=== PATIENT | female | born 1990 | race Caucasian/White ===

== ENCOUNTER 2022-09-09 07:47 | Day surgery (SDC) | payer BC, SELFPAY ==
[2022-09-09] VITALS (12 sets, daily range): BP systolic 90–118; BP diastolic 52–74; PULSE 71–91; RESP 14–18; TEMP 36.4–36.7; O2SAT 94–99
[2022-09-09] MEDS: LACTATED RINGERS 1000 ML 1,000 ML 100 ML IV (08:35)
[2022-09-09] MEDS: SODIUM CHLORIDE 0.9 % (FLUSH) 10 ML SYRINGE IVF (08:35)
[2022-09-09 09:26] LABS: HCG Qualitative Serum* Negative (Negative)
--- NOTE | 2022-09-09 10:52 | P.GYNPRC_ITS ---
Procedure Note Date Seen: 09/09/22 Procedure Details: PREOPERATIVE DIAGNOSIS: Chronic left Bartholin's duct cyst, previously incised and drained and marsupialized. POSTOPERATIVE DIAGNOSIS: Chronic left Bartholin's duct cyst, previously incised and drained and marsupialized. PROCEDURE: Excision of left Bartholin's duct cyst. SURGEON: Belinda. ANESTHESIA: Monitored anesthesia care converted to general endotracheal with LMA. COMPLICATIONS: None ESTIMATED BLOOD LOSS: 75 mL. FINDINGS: Enlarged left Bartholin's cyst, approximately 4 cm diameter, draining to the skin of the posterior inferior left vulva when pressure applied, yellow- green malodorous opaque discharge. PROCEDURE NOTE: Because the cyst could be seen to drain from to subcutaneous tracks to the exterior vulvar skin, the decision was made not to proceed merely with marsupialization, as this would result in 3 drainage tracts. The decision was made to proceed with excision of the cyst. A wheal was made using 1% lidocaine with epi subcutaneously over the surface of the cyst just within the introitus in the vaginal mucosa. A 10 mm incision was then made with the scalpel into the vaginal mucosa over the cyst. The skin edges were grasped with Allis clamps. The underlying Bartholin's duct cyst was grasped with Yuki clamps. A combination of blunt and sharp dissection with Metzenbaum scissors was used to carefully dissect the cyst wall from the vulvar tissues. The patient had some apparent discomfort during the dissection, so additional lidocaine with epinephrine was injected into the tissues surrounding the cyst. Anesthesia was then converted from monitored anesthesia care to general endotracheal anesthesia using an LMA. In the process of dissection, the cyst was ruptured, and drained additional yellow-green fluid. The skin edges were also somewhat fragile, and the incision extended to approximately 3 cm. I was able to place my finger with in the cyst, which helped delineate the proximal aspect of the cyst. With my finger within the cyst, additional sharp and blunt dissection was performed until the cyst was completely dissected free from the surrounding tissues. Bleeding of small arterial vessels was controlled with electrocautery. The defect was reapproximated in layers with interrupted sutures of 2-0 Vicryl. Excellent hemostasis was noted. The skin and vaginal mucosal edges were reapproximated in a running fashion with 3-0 Vicryl. The patient tolerated the procedure well. Sponge, lap, needle, and instrument counts reported as correct x2. The patient was taken to the recovery room awake and in stable condition. She received 30 mg of IV Toradol at the conclusion of the procedure. A total of 10 mL of the 1% lidocaine with epi was used.
--- NOTE | 2022-09-09 11:08 | W.ANESCHARGE ---
Anesthesia Charges Start Date/Time Anesthesia Start Date: 09/09/22 Anesthesia Start Time: 09:11 Stop Date/Time Anesthesia Stop Date: 09/09/22 Anesthesia Stop Time: 11:04
--- NOTE | 2022-09-09 11:11 | W.ANESCHARGE ---
Anesthesia Charges Start Date/Time Anesthesia Start Date: 09/09/22 Anesthesia Start Time: 09:11 Stop Date/Time Anesthesia Stop Date: 09/09/22 Anesthesia Stop Time: 11:04
== END 2022-09-09 12:55 | disposition home or self-care (01) ==
PROVIDERS: PCP Student in an Organized Health Care Education/Training Program; Visit Provider Obstetrics & Gynecology
PROC: (CPT 56740; principal; 2022-09-09 09:00)
DX: N75.0 Cyst of Bartholin's gland (principal)
CPT/HCPCS: 56740; 00940; 36415; 81025; 84703; 88304; J1100; J1885; J2250; J2370; J2405; J2704; J3010; J3490; J7120

== ENCOUNTER 2022-12-22 23:38 | Emergency (ER) | payer BC, SELFPAY ==
--- NOTE | 2022-12-22 23:54 | CRLHL7_ITS ---
For Patients: As a result of the Century Cures Act, medical imaging exams and procedure reports are released immediately into your electronic medical record. You may view this report before your referring provider. If you have questions, please contact your health care provider. Indication: Lateral ankle pain after injury Technique: Three views right ankle Comparison: None Findings: Bones: Surgical screw in the medial malleolus. Two screws within the distal metaphysis of the tibia. No hardware complication identified. Alignment is normal. No fractures or bone lesions. Joint spaces: Unremarkable. Soft tissues: Unremarkable. Impression: No acute fracture or hardware complication. Dictated by Karlee Son MD @ 12/23/2022 1:04:30 AM (Electronically Signed)
[2022-12-22 23:55] VITALS: BP 119/78; PULSE 99; RESP 16; TEMP 37.1; O2SAT 98
--- NOTE | 2022-12-23 00:32 | ED.LOWEXIN ---
HPI - Extremity Injury (Lower) General Date Seen: 12/23/22 Chief Complaint: Extremity Pain/Injury, Lower Stated Complaint: rolled right ankle Time Seen by Provider: 12/22/22 23:57 Source: patient Mode of arrival: ambulatory Limitations: no limitations History of Present Illness HPI Narrative: Patient is a 32-year-old female presented emergency department for right ankle pain. She states around 17:00 today she tripped over her her child in inverted her right ankle. She has been taking ibuprofen and Tylenol with some improvement in her symptoms. She has been able to walk on the ankle foot does note a lot of pain to the lateral malleolus. She previously broken ankle in the past as multiple screws and so she was concerned and came to the be evaluated. States she has some tingling sensation in her toes but no other concerns. Denies knee or foot pain. Related Data Home Medications Medication Instructions Recorded Confirmed phentermine 37.5 mg tablet 18.75 mg PO QDAY 10/08/21 09/24/22 valacyclovir 1 gram tablet 2,000 mg PO DAILY 09/05/22 09/24/22 (Valtrex) acetaminophen 500 mg tablet 1,000 mg PO BID PRN 09/17/22 09/24/22 (Tylenol Extra Strength) Previous Rx's Medication Instructions Recorded escitalopram oxalate 10 mg tablet See Rx Instructions .Route 07/21/22 .COMPLEX #90 tabs norethindrone (contraceptive) 0.35 0.35 mg PO DAILY #84 tabs 07/21/22 mg tablet (Jencycla) Allergies Allergy/AdvReac Type Severity Reaction Status Date / Time topomax Allergy Intermediate Uncoded 09/24/22 14:44 Review of Systems Narrative: Negative other than stated in HPI PFSH PFSH Medical History (Updated 12/23/22 @ 01:08 by Jer Guevara DO) Flu-like symptoms ?R68.89 - Other general symptoms and signs (ICD-10) Hx gestational diabetes ?Z86.32 - Personal history of gestational diabetes (ICD-10) History of migraine ?Z86.69 - Personal history of other diseases of the nervous system and sense organs (ICD-10) Low grade squamous intraepithelial lesion (LGSIL) on Papanicolaou smear of cervix ?R87.612 - Low grade squamous intraepithelial lesion on cytologic smear of cervix (LGSIL) (ICD-10) Tick bite ?W57.XXXA - Bitten or stung by nonvenomous insect and other nonvenomous arthropods, initial encounter (ICD-10) hemorrhage ?O72.1 - Other immediate hemorrhage (ICD-10) Cellulitis ?L03.90 - Cellulitis, unspecified (ICD-10) Anemia due to acute blood loss ?D62 - Acute posthemorrhagic anemia (ICD-10) Surgical History (Updated 09/24/22 @ 15:05 by Dotty Trevino MD) Bartholin's duct cyst (09/09/22) ?N75.0 - Cyst of Bartholin's gland (ICD-10) Hx of section ?Z98.891 - History of uterine scar from previous surgery (ICD-10) History of ankle surgery (05/24/04) ?Z98.890 - Other specified postprocedural states (ICD-10) History of loop electrosurgical excision procedure (LEEP) (02/20/20) ?Z98.890 - Other specified postprocedural states (ICD-10) Status post primary low transverse section (01/22/20) ?Z98.891 - History of uterine scar from previous surgery (ICD-10) Family History (Updated 07/30/22 @ 16:28 by Dotty Trevino MD) Mother High cholesterol Maternal Grandmother Breast cancer Social History (Updated 07/30/22 @ 16:30 by Dotty Trevino MD) Narrative: 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, works as senior supplier quality engineer Smoking Status: Former smoker What tobacco products do you use: cigarettes Smoking quit date/years: >15 years ago Do you use any of these nicotine containing products: None How often do you have a drink containing alcohol: never How often do you have six or more drinks on one occasion: Never AUDIT-C Alcohol total score: 0 Non-prescribed substance use: denies use Caffeine: Yes (65-100 mg daily) Are you now , , , , never or living with a partner: Social isolation score (0-1 are the most socially isolated patients): 0 Little interest or pleasure in doing things: not at all Feeling down, depressed, or hopeless: not at all Do you think of yourself as: straight/heterosexual Gender Identity: female Are you currently sexually active: Yes Are you using contraception or practicing any form of control: Yes (LMP 08/24/22) Exam Narrative: Exam Narrative: Const: Well-nourished, Well-developed, in mild distress Eyes: PERRL, no conjunctival injection, and symmetrical lids HENT: Atraumatic external nose and ears. Moist mucous membranes. MSK:Extremities w/o deformity, swelling to the anterior right malleolus of right ankle, no tenderness noted in right foot or right knee Skin: Warm, Dry. No rashes or lesions. Neuro: Normal Muscle tone, No focal neurological deficits. Psych: Awake, Alert, & Oriented x3. Appropriate mood and affect. Const: Vital Signs, click to edit/add: Vital Signs - 24 hr 12/22/22 23:55 12/23/22 00:42 Temperature 98.7 F 98.7 F Pulse Rate [Right Pulse Oximeter] 99 Respiratory Rate 16 Blood Pressure [Ri ght Upper Arm] 119/78 Pulse Oximetry 98 Oxygen Delivery Me thod Room Air Course Vital Signs Vital signs: Initial Vital Signs Temperature 98.7 F 12/22/22 23:55 Temperature Source Temporal Artery Scan 12/22/22 23:55 Pulse Rate 99 12/22/22 23:55 Respiratory Rate 16 12/22/22 23:55 Blood Pressure 119/78 12/22/22 23:55 Blood Pressure Mean 91 12/22/22 23:55 Blood Pressure Position Sitting 12/22/22 23:55 Pulse Oximetry 98 12/22/22 23:55 Oxygen Delivery Method Room Air 12/22/22 23:55 Vital Signs Temperature 98.7 F 12/22/22 23:55 Pulse Rate 99 12/22/22 23:55 Respiratory Rate 16 12/22/22 23:55 Blood Pressure 119/78 12/22/22 23:55 Pulse Oximetry 98 12/22/22 23:55 Oxygen Delivery Method Room Air 12/22/22 23:55 Temperature 98.7 F 12/23/22 00:42 Pulse Rate 99 12/22/22 23:55 Respiratory Rate 16 12/22/22 23:55 Blood Pressure 119/78 12/22/22 23:55 Pulse Oximetry 98 12/22/22 23:55 Oxygen Delivery Method Room Air 10/09/23 23:55 MDM - Extremity Injury (Lower) MDM Narrative Medical decision making narrative: Patient is a 32-year-old female presenting for right ankle pain. She is able to ambulate on the ankle. She is concerned she might have a loose on the screws. X-ray of the right ankle will be ordered. There is no tenderness notes the knee or foot and up relieving x-rays of these areas. She will be given a dose of Toradol for pain. She is doing well after the Toradol injection. X-ray returned showing no signs of acute injury. Patient most likely sprained her ankle. She will be discharged home. She is agreeable to this plan. Imaging Data Right ankle x-ray: Radiologist's impression: Indication: Lateral ankle pain after injury Technique: Three views right ankle Comparison: None Findings: Bones: Surgical screw in the medial malleolus. Two screws within the distal metaphysis of the tibia. No hardware complication identified. Alignment is normal. No fractures or bone lesions. Joint spaces: Unremarkable. Soft tissues: Unremarkable. Impression: No acute fracture or hardware complication. Discharge Plan Discharge Clinical Impression: Ankle sprain Qualifiers: Encounter type: initial encounter Involved ligament of ankle: unspecified ligament Laterality: right Qualified Code(s): S93.401A - Sprain of unspecified ligament of right ankle, initial encounter Patient Disposition: Home, Self-Care Condition: Stable Instructions: Ankle Sprain (DC) Additional Instructions: It appears you have sprained her ankle. Take Tylenol and ibuprofen for pain. You can walk on it as much as tolerable. Prescriptions: No Action escitalopram oxalate 10 mg tablet See Rx Instructions .ROUTE .COMPLEX Qty: 90 3RF Dose Instruction: TAKE 1 TABLET BY MOUTH DAILY Rx Instructions: TAKE 1 TABLET BY MOUTH DAILY norethindrone (contraceptive) [Jencycla] 0.35 mg tablet 0.35 mg PO DAILY Qty: 84 3RF phentermine 37.5 mg tablet 18.75 mg PO QDAY Rx Instructions: must administer 30 minutes before or 1-2 hours after breakfast acetaminophen [Tylenol Extra Strength] 500 mg tablet 1,000 mg PO BID PRN valacyclovir [Valtrex] 1 gram tablet 2,000 mg PO DAILY Follow Up/Referrals: Trisha Lagunas PA-C [Primary Care Provider] - Stand Alone [facility]
[2022-12-23 00:42] VITALS: TEMP 37.1
[2022-12-23] MEDS: KETOROLAC 30 MG/ML inj IM (00:42)
[2022-12-23 01:12] VITALS: BP 121/74; PULSE 89; RESP 16; TEMP 36.8; O2SAT 98
[2022-12-23 01:22] VITALS: BP 121/74; PULSE 89; RESP 16; TEMP 36.8
== END 2022-12-23 01:22 | disposition home or self-care (01) ==
PROVIDERS: Emergency Provider Student in an Organized Health Care Education/Training Program; PCP Student in an Organized Health Care Education/Training Program
DX: S93.401A Sprain of unspecified ligament of right ankle, initial encounter (principal)
CPT/HCPCS: 73610; 96372; 99282; 99284; J1885

== ENCOUNTER 2023-10-12 10:07 | Outpatient (CLI) | payer BC, SELFPAY | END 2023-10-12 10:08 | disposition home or self-care (01) | PROVIDERS: PCP Student in an Organized Health Care Education/Training Program; Visit Provider Obstetrics & Gynecology | DX: Z01.419 Encounter for gynecological examination (general) (routine) without abnormal findings (principal); E66.9 Obesity, unspecified; N92.6 Irregular menstruation, unspecified | CPT/HCPCS: 80061; 83001; 83002; 83498; 83520; 84270; 84402; 84403; 84443 ==

== ENCOUNTER 2024-10-25 14:00 | Outpatient (CLI) | payer BC, SELFPAY | END 2024-10-25 14:01 | disposition home or self-care (01) | LOC: NFLDREF 14:02 | PROVIDERS: PCP Student in an Organized Health Care Education/Training Program; Visit Provider Obstetrics & Gynecology | DX: Z13.6 Encounter for screening for cardiovascular disorders (principal) | CPT/HCPCS: 80061 ==

== ENCOUNTER 2024-11-03 10:40 | Outpatient (CLI) | payer BC, SELFPAY ==
--- NOTE | 2024-11-03 10:45 | CRLHL7_ITS ---
For Patients: As a result of the Century Cures Act, medical imaging exams and procedure reports are released immediately into your electronic medical record. You may view this report before your referring provider. If you have questions, please contact your health care provider. INDICATION: IRREGULAR MENSTRUATION COMPARISON: None. TECHNIQUE: 2D garrison-scale and color Doppler images were acquired of the pelvis using a transabdominal and transvaginal approach. Transvaginal imaging performed to better visualize the endometrial stripe and ovaries. FINDINGS: Sonographic images demonstrate a normal size and smooth outer contour of the uterus. Uterus measures 7.0 cm in length by 3.9 cm in AP diameter by 5.1 cm in transverse dimension. The myometrium has a normal uniform echotexture. The endometrial lining appears normal and measures 7.2 mm in composite thickness. The right ovary measures 3.7 x 1.9 x 3.5 cm in size and the left ovary measures 3.5 x 2.0 x 3.3 cm. The ovaries demonstrate normal arterial and venous blood flow on color Doppler analysis. There are no suspicious fluid collections within the cul-de-sac. Collapsing right ovarian cyst measures 2.1 x 1.3 x 1.9 cm. Multiple ovarian follicles are present bilaterally. IMPRESSION: Endometrial thickness 7.2 millimeters. Dictated by Mervin Moser MD @ 11/03/2024 2:38:37 PM (Electronically Signed)
== END 2024-11-03 10:41 | disposition home or self-care (01) ==
LOC: US 10:41
PROVIDERS: PCP Student in an Organized Health Care Education/Training Program; Visit Provider Obstetrics & Gynecology
DX: N92.6 Irregular menstruation, unspecified (principal); R93.89 Abnormal findings on diagnostic imaging of other specified body structures
CPT/HCPCS: 76830; 76856

== ENCOUNTER 2024-12-15 12:39 | Outpatient (CLI) | payer BC, SELFPAY ==
--- NOTE | 2024-12-15 13:00 | CRLHL7_ITS ---
For Patients: As a result of the Century Cures Act, medical imaging exams and procedure reports are released immediately into your electronic medical record. You may view this report before your referring provider. If you have questions, please contact your health care provider. CLINICAL HISTORY: Right sided pelvic pain intermittent COMPARISON: 11/03/2024 TECHNIQUE: 2D garrison-scale ultrasound. In addition, color Doppler and spectral Doppler analysis was performed of the pelvis using a transvaginal approach. FINDINGS: On transvaginal imaging, the myometrium has a normal uniform echotexture. The uterus measures 7.9 x 4.2 x 5.1 cm. The endometrial lining measures 11.3 mm in thickness. Normal position of an IUD within the endometrial canal. The right ovary measures 3.5 x 1.8 x 2.8 cm in size and the left ovary measures 3.7 x 2.3 x 2.8 cm. The ovaries demonstrate normal arterial and venous blood flow on color Doppler and spectral Doppler analysis. There are no suspicious fluid collections within the cul-de-sac. IMPRESSION: Normal position of an IUD within the endometrial canal. Endometrium measures 11.3 millimeters. No endometrial fluid. No uterine fibroid. Multiple small follicles within each ovary. No torsion or excess pelvic free fluid. No adnexal mass. Dictated by Mervin Moser MD @ 12/15/2024 4:24:13 PM (Electronically Signed)
== END 2024-12-15 12:40 | disposition home or self-care (01) ==
LOC: US 12:39
PROVIDERS: PCP Student in an Organized Health Care Education/Training Program; Visit Provider Obstetrics & Gynecology
DX: R10.21 Pelvic and perineal pain right side (principal); R93.89 Abnormal findings on diagnostic imaging of other specified body structures; N83.01 Follicular cyst of right ovary; N83.02 Follicular cyst of left ovary
CPT/HCPCS: 76830; 93976